=== PATIENT | male | born 1960 | race Caucasian/White ===

== ENCOUNTER 2019-09-12 08:00 | Day surgery (SDC) | payer BC ==
[2019-09-11 16:51] VITALS: BMI 35.1
[2019-09-12] MEDS ORDERED: MIDAZOLAM HCL 2 MG/2 ML SINGLE DOSE VIAL ONE (09:20)
--- NOTE | 2019-09-12 09:42 | HP ---
Admitting History and Physical - Admission History of Present Illness: The patient is a 58 yo male who presents today for a rountine colonscopy. He is a patient of Dr. Hamilton. He took his bowel prep and denies any abdominal pain today. No nausea or emesis. The patient provides a history of diverticular disease without any diverticular attacks and or hospital admissions for this problem. He was seen by Dr. Hamilton in early June. Since that time no changes to his bowel habits. No constipation/diarrhea/bleeding. He did have a cardiology workup which was routine in nature, as per the pt it included a stress test and echo. As stated in Dr. Mars notes, cardiomyopathy improved on recent echo by Dr. Remy. He denies any SOB, CP, syncope, palpitations. History Source: Patient Limitations to Obtaining History: No Limitations - Past Medical History Cardiovascular: Yes: HTN Pulmonary: Yes: Sleep Apnea, Other (pt had repair of septal defect) Gastrointestinal: Yes: Diverticulosis, Gastritis, GERD, Hemorrhoids, Hiatal Hernia Renal/: Yes: Renal Failure Endocrine: Yes: Other (pre diabetes) - Past Surgical History Past Surgical History: Yes: Hernia Repair Additional Past Surgical History: gastroscopy in 09/15/09-gastritis, refulx espophagitis. 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, duodenal polyp Hp negative colonscopy in -hemorrhoids - Smoking History Smoking history: Never smoked - Alcohol/Substance Use Hx Alcohol Use: Yes (last 3 weeks ago) Home Medications - Allergies Allergies/Adverse Reactions: Allergies Allergy/AdvReac Type Severity Reaction Status Date / Time CHRISTEN Inhibitors Allergy Mild Verified 09/11/19 16:34 - Home Medications Home Medications: Ambulatory Orders Aspirin [Adult Aspirin Regimen] 81 mg PO DAILY 09/11/19 Losartan Potassium 100 mg PO DAILY 09/11/19 Metoprolol Succinate [Toprol Xl] 50 mg PO DAILY 09/11/19 Multivitamin [One-Daily Multi-Vitamin] 1 each PO DAILY 09/11/19 Omeprazole Magnesium 20 mg PO DAILY 09/11/19 Sildenafil Citrate [Viagra] 50 mg PO ASDIR 09/11/19 Review of Systems - Review of Systems Constitutional: denies: Chills, Fever Cardiovascular: denies: Chest Pain, Palpitations, Shortness of Breath Respiratory: reports: Snoring (obstrutive sleep apnea doctumented on his chart, deviated septal repair to help irmpove symptoms, never had sleep study and doesn't use a sleep machine.). denies: Cough, SOB Gastrointestinal: denies: Abdominal Pain, Constipation, Melena, Nausea, Vomiting Genitourinary: denies: Burning, Dysuria, Hematuria Musculoskeletal: denies: Decreased ROM, Extremity Pain Neurological: denies: Dizziness, Headache, Numbness Hematology/Lymphatic: denies: Easily Bruised, Excessive Bleeding Physical Examination Vital Signs: Vital Signs Temperature 98.6 F 09/12/19 08:30 Pulse Rate 71 09/12/19 08:30 Respiratory Rate 15 09/12/19 08:30 Blood Pressure 141/86 09/12/19 08:30 O2 Sat by Pulse Oximetry (%) 97 09/12/19 08:30 Constitutional: Yes: Well Nourished, No Distress Eyes: Yes: Conjunctiva Clear HENT: Yes: Atraumatic, Normocephalic Neck: Yes: Supple, Trachea Midline Cardiovascular: Yes: WNL, Regular Rate and Rhythm Respiratory: Yes: WNL, Regular, CTA Bilaterally Gastrointestinal: Yes: WNL, Soft, Abdomen, Obese, Other (left inguinal scar(healed)) Extremities: Yes: Calf Tenderness Edema: No Peripheral Pulses WNL: Yes Peripheral Pulses: Left Radial: 2+, Right Radial: 2+ Neurological: Yes: WNL, Alert, Oriented Psychiatric: Yes: WNL, Alert, Oriented Assessment/Plan 59 yo male for colonoscopy today Documentation regarding cardology workup not available at point of care today, reviewed with the patient and anesthesia. Anethesia cleared pt for procedure Dr. Hamilton aware of pt care and pre-procedural workp but documentation is not present. Pt took his metorpolol this am and isn't having any cardiac symptoms today. D/w Dr. Vieira
[2019-09-12 12:26] VITALS: TEMP 97.7
[2019-09-12 12:31] VITALS: BP 123/70; PULSE 75
--- NOTE | 2019-09-13 14:04 | PATH ---
Surgical Pathology Report Patient Name: SIXTO LAWS [facility]. Rec. #: [id number] /Age/Gender: 1960 (Age: 59) / M Account: [id number] Location: [facility]-ENDOSCOPY Taken: 09/12/2019 Received: 09/12/2019 Reported: 09/13/2019 Physicians: Rico Beltran M.D. Specimen(s) Received SIGMOID POLYP Clinical History Colon cancer screening Final Diagnosis SIGMOID COLON, POLYP, POLYPECTOMY: TUBULAR ADENOMA. Electronically Signed Hedy Sy M.D. Gross Description Received in formalin, labeled "sigmoid polyp" are 2 smith, irregular portions of soft tissue measuring 0.4 and 0.7 cm. in greatest dimension. The specimens are submitted in toto in one cassette. 09/12/2019 [facility]09/12/2019
== END 2019-09-12 11:03 | disposition home or self-care (01) ==
LOC: JASU-ENDO 08:00
PROVIDERS: ATTEND Internal Medicine Gastroenterology
PROC: 0DBN8ZX Excision of Sigmoid Colon, Via Natural or Artificial Opening Endoscopic, Diagnostic (ICD-10-PCS; principal; 2019-09-12 08:45)
DX: Z12.11 Encounter for screening for malignant neoplasm of colon (principal); D12.5 Benign neoplasm of sigmoid colon; K64.8 Other hemorrhoids; K57.30 Diverticulosis of large intestine without perforation or abscess without bleeding; I09.89 Other specified rheumatic heart diseases; K21.9 Gastro-esophageal reflux disease without esophagitis; E66.9 Obesity, unspecified; Z68.35 Body mass index [BMI] 35.0-35.9, adult